=== PATIENT | male | born 1970 | race Caucasian/White ===

== ENCOUNTER 2017-10-12 14:41 | Emergency (ER) | payer OTHER ==
[~2017-10-12] VITALS: Ht 177.8 cm; Wt 102.1 kg
[2017-10-12 15:12] LABS: BASOPHILS % (AUTO) 0 % (0-10); EOSINOPHILS # (AUTO) 0.1 10^3/uL (0.0-0.3); EOSINOPHILS % (AUTO) 1 % (0-10); HEMATOCRIT 49 % (40-54); LYMPHOCYTES # (AUTO) 1.2 X 10^3 (1.0-4.0); LYMPHOCYTES % (AUTO) 8 % (12-44); MEAN CORPUSCULAR HEMOGLOBIN 31 PG (25-34); MEAN CORPUSCULAR HGB CONC 37 G/DL (32-36); MEAN CORPUSCULAR VOLUME 84 FL (80-99); MEAN PLATELET VOLUME 9.5 FL (7.4-10.4); MONOCYTES # (AUTO) 0.9 X 10^3 (0.0-1.0); MONOCYTES % (AUTO) 7 % (0-12); NEUTROPHILS # (AUTO) 11.5 X 10^3 (1.8-7.8); NEUTROPHILS % (AUTO) 84 % (42-75); PLATELET COUNT 315 10^3/uL (130-400); RED BLOOD COUNT 5.88 10^6/uL (4.35-5.85); RED CELL DISTRIBUTION WIDTH 13.7 % (10.0-14.5); WHITE BLOOD COUNT 13.7 10^3/uL (4.3-11.0)
[2017-10-12] MEDS ORDERED: NS IV 1000 ML 1,000 ML IV SCH (15:15)
[2017-10-12] MEDS ORDERED: NS 100 ML (IVPB) BAG IV ONE (15:15)
[2017-10-12] MEDS ORDERED: IOHEXOL 350 MG/ML 100 ML (OMNIPAQUE 350) VIAL IV ONE (15:15)
--- NOTE | 2017-10-12 15:23 | ED Abdominal Pain ---
General Chief Complaint: Abdominal/GI Problems Stated Complaint: N/V/CONSTIPATION/DIZZINESS Source of Information: Patient, Family Exam Limitations: No Limitations History of Present Illness Date Seen by Provider: Oct 12, 2017 Time Seen by Provider: 15:16 Initial Comments This 46-year-old white male presents with a complaint of constipation. Patient awoke this morning with tenesmus. Subsequently had 2 bowel movements. His past most recent bowel movement was 2 days ago. This is not an unusual interval for the patient. Patient has had similar episodes of paroxysmal constipation in the past year. The patient employed as self-administered fleets enema. Patient noted that he had a small amount of blood in his stool. He had an episode of vomiting. The patient has no abdominal pain at this time. He denies associated hematemesis, fever or chills, hematuria or dysuria, headache or stiff neck. Allergies and Home Medications Allergies Coded Allergies: No Known Drug Allergies (Unverified , 06/10/15) Patient Home Medication List Home Medication List Reviewed: Yes Review of Systems Constitutional: No chills, No fever EENTM: No Blurred Vision Respiratory: Denies Cough Cardiovascular: Denies Chest Pain Gastrointestinal: Abdominal Pain (patient's abdominal pain has spontaneously resolved after his stools), Constipated; Denies Vomiting Genitourinary: Denies Burning Musculoskeletal: No back pain Skin: No change in color, No rash Psychiatric/Neurological: No Symptoms Reported Endocrine: No Symptoms Reported Hematologic/Lymphatic: No Symptoms Reported Past Iiyazez-Krdxrl-Iffbfs Hx Past Med/Social Hx: Reviewed Nursing Past Med/Soc Hx Patient Social History Recent Foreign Travel: No Contact w/Someone Who Travel: No Physical Exam Vital Signs Vital Signs - First Documented 10/12/17 15:00 Temp 98.1 Pulse 89 Resp 20 B/P (MAP) 135/97 (110) Pulse Ox 95 O2 Delivery Room Air Capillary Refill : General Appearance: WD/WN, no apparent distress HEENT: normal ENT inspection Neck: non-tender, full range of motion, supple Respiratory: chest non-tender, lungs clear, normal breath sounds, no respiratory distress Cardiovascular: normal peripheral pulses, regular rate, rhythm Gastrointestinal: normal bowel sounds, non tender, soft Extremities: normal range of motion, non-tender, normal inspection, no pedal edema Back: normal inspection, no CVA tenderness, no vertebral tenderness Neurologic/Psychiatric: no motor/sensory deficits, alert, normal mood/affect, oriented x 3 Skin: normal color, warm/dry Progress/Results/Core Measures Results/Orders Lab Results Laboratory Tests Test 10/12/17 15:05 10/12/17 16:03 Range/Units White Blood Count 13.7 H 4.3-11.0 10^3/uL Red Blood Count 5.88 H 4.35-5.85 10^6/uL Hemoglobin 18.0 H 13.3-17.7 G/DL Hematocrit 49 40-54 % Mean Corpuscular Volume 84 80-99 FL Mean Corpuscular Hemoglobin 31 25-34 PG Mean Corpuscular Hemoglobin Concent 37 H 32-36 G/DL Red Cell Distribution Width 13.7 10.0-14.5 % Platelet Count 315 130-400 10^3/uL Mean Platelet Volume 9.5 7.4-10.4 FL Neutrophils (%) (Auto) 84 H 42-75 % Lymphocytes (%) (Auto) 8 L 12-44 % Monocytes (%) (Auto) 7 0-12 % Eosinophils (%) (Auto) 1 0-10 % Basophils (%) (Auto) 0 0-10 % Neutrophils # (Auto) 11.5 H 1.8-7.8 X 10^3 Lymphocytes # (Auto) 1.2 1.0-4.0 X 10^3 Monocytes # (Auto) 0.9 0.0-1.0 X 10^3 Eosinophils # (Auto) 0.1 0.0-0.3 10^3/uL Basophils # (Auto) 0.0 0.0-0.1 10^3/uL Sodium Level 140 135-145 MMOL/L Potassium Level 4.0 3.6-5.0 MMOL/L Chloride Level 108 H 98-107 MMOL/L Carbon Dioxide Level 19 L 21-32 MMOL/L Anion Gap 13 5-14 MMOL/L Blood Urea Nitrogen 20 H 7-18 MG/DL Creatinine 0.99 0.60-1.30 MG/DL Estimat Glomerular Filtration Rate > 60 BUN/Creatinine Ratio 20 Glucose Level 134 H 70-105 MG/DL Calcium Level 9.9 8.5-10.1 MG/DL Total Bilirubin 1.4 H 0.1-1.0 MG/DL Aspartate Amino Transf (AST/SGOT) 31 5-34 U/L Alanine Aminotransferase (ALT/SGPT) 68 H 0-55 U/L Alkaline Phosphatase 91 40-136 U/L Total Protein 7.9 6.4-8.2 GM/DL Albumin 4.8 H 3.2-4.5 GM/DL Lipase 17 8-78 U/L Urine Color YELLOW Urine Clarity CLEAR Urine pH 5 5-9 Urine Specific [place] 1.015 L 1.016-1.022 Urine Protein 1+ H NEGATIVE Urine Glucose (UA) NEGATIVE NEGATIVE Urine Ketones 2+ H NEGATIVE Urine Nitrite NEGATIVE NEGATIVE Urine Bilirubin NEGATIVE NEGATIVE Urine Urobilinogen NORMAL NORMAL MG/DL Urine Leukocyte Esterase NEGATIVE NEGATIVE Urine RBC (Auto) NEGATIVE NEGATIVE Urine RBC NONE /HPF Urine WBC NONE /HPF Urine Squamous Epithelial Cells NONE /HPF Urine Crystals NONE /LPF Urine Bacteria NEGATIVE /HPF Urine Casts NONE /LPF Urine Mucus NEGATIVE /LPF Urine Culture Indicated NO My Orders Orders - TUNDE VANN MD Cbc With Automated Diff (10/12/17 15:03) Comprehensive Metabolic Panel (10/12/17 15:03) Ua Culture If Indicated (10/12/17 15:03) Ct Abdomen/Pelvis W (10/12/17 15:03) Lipase (10/12/17 15:03) Ns Iv 1000 Ml (Sodium Chloride 0.9%) (10/12/17 15:15) Ondansetron Injection (Zofran Injectio (10/12/17 16:15) Fentanyl Injection (Sublimaze Injection (10/12/17 16:15) Medications Given in ED Current Medications Medications Dose Ordered Sig/Aries Route Start Time Stop Time Status Last Admin Dose Admin Fentanyl Citrate 50 mcg ONCE ONCE IVP 10/12/17 16:15 10/12/17 16:16 DC 10/12/17 16:13 50 MCG Iohexol 100 ml ONCE ONCE IV 10/12/17 15:15 10/12/17 15:28 DC 10/12/17 15:43 100 ML Ondansetron HCl 4 mg ONCE ONCE IVP 10/12/17 16:15 10/12/17 16:16 DC 10/12/17 16:12 4 MG Sodium Chloride 100 ml ONCE ONCE IV 10/12/17 15:15 10/12/17 15:28 DC 10/12/17 15:43 100 ML Vital Signs/I&O 10/12/17 15:00 Temp 98.1 Pulse 89 Resp 20 B/P (MAP) 135/97 (110) Pulse Ox 95 O2 Delivery Room Air Progress Progress Note : Time: 16:26 Progress Note Patient's white count was elevated. His lipase was normal. Remainder of the CMP was unremarkable. His urinalysis was benign. His CT from my perspective was consistent with diverticulitis although the radiologist only saw diverticulosis. Patient had continued abdominal pain and significant nausea. This was effectively treated with 50 g of fentanyl and 4 mg of Zofran. I discussed findings with patient and his . We elected to treat the patient for diverticulitis. Place patient on Cipro and Flagyl. I gave him Percocet and Zofran for pain and nausea. I asked that he follow-up closely with his primary care physician on Saturday. Patient agreed to come back for any further problems or questions. Departure Impression Primary Impression: Diverticulitis of intestine Qualified Codes: K57.33 - Diverticulitis of large intestine without perforation or abscess with bleeding Disposition: HOME, SELF-CARE Condition: Improved Departure-Patient Inst. Decision time for Depature: 16:28 Referrals: ZEINAB MARTÍNEZ MD (PCP/Family) Primary Care Physician Add. Discharge Instructions: Cipro and Flagyl as prescribed. Vicodin for pain. Zofran for nausea. Follow- up with your doctor Saturday for recheck. Rest at home this . He should' ve any problems. All discharge instructions reviewed with patient and/or family. Voiced understanding. TUNDE VANN MD Oct 12, 2017 15:23
[2017-10-12 15:32] LABS: ALANINE AMINOTRANSFERASE 68 U/L (0-55); ALBUMIN 4.8 GM/DL (3.2-4.5); ALKALINE PHOSPHATASE 91 U/L (40-136); BILIRUBIN,TOTAL 1.4 MG/DL (0.1-1.0); BUN/CREATININE RATIO 20; CALCIUM 9.9 MG/DL (8.5-10.1); CARBON DIOXIDE 19 MMOL/L (21-32); CHLORIDE 108 MMOL/L (98-107); CREATININE SERUM 0.99 MG/DL (0.60-1.30); GFR ESTIMATED > 60; GLUCOSE 134 MG/DL (70-105); LIPASE 17 U/L (8-78); SODIUM 140 MMOL/L (135-145); TOTAL PROTEIN 7.9 GM/DL (6.4-8.2)
--- NOTE | 2017-10-12 16:03 | Diagnostic Imaging Report ---
PROCEDURE: CT abdomen and pelvis with contrast. TECHNIQUE: Multiple contiguous axial images were obtained through the abdomen and pelvis after administration of intravenous contrast. INDICATION: Abdominal pain with severe constipation, cramping, nausea and vomiting. COMPARISON: None. DISCUSSION: The lung bases are unremarkable. Normal heart size. No pleural or pericardial fluid. Fatty infiltration of the liver is noted. The gallbladder, stomach, pancreas, spleen, and adrenal glands are unremarkable. Simple appearing cyst is noted within the superior left kidney measuring 6 cm. No hydronephrosis or renal stone. Urinary bladder and prostate are unremarkable. Mild diverticulosis with no secondary evidence for diverticulitis. No constipation. No obstruction, pneumatosis, pneumoperitoneum. The appendix is normal. No ascites or pathologically enlarged lymph nodes identified. Aorta is normal in caliber. No osseous abnormality. IMPRESSION: 1. Fatty liver. 2. Diverticulosis. Dictated by: Dictated on workstation # [id number]
[2017-10-12 16:12] LABS: BILIRUBIN,URINE NEGATIVE (NEGATIVE); CLARITY,URINE CLEAR; COLOR,URINE YELLOW; GLUCOSE, URINE (UA) NEGATIVE (NEGATIVE); KETONES,URINE 2+ (NEGATIVE); LEUKOCYTE ESTERASE ,URINE NEGATIVE (NEGATIVE); NITRITE,URINE NEGATIVE (NEGATIVE); PH,URINE 5 (5-9); PROTEIN,URINE 1+ (NEGATIVE); UROBILINOGEN,URINE NORMAL (NORMAL)
[2017-10-12] MEDS ORDERED: fentaNYL INJECTION 100 MCG/2 ML AMP IVP ONE (16:15)
[2017-10-12] MEDS ORDERED: ONDANSETRON 4 MG/2 ML (SDV) Z0FRAN IVP ONE (16:15)
[2017-10-12 16:19] LABS: BACTERIA,URINE NEGATIVE /HPF
[2017-10-12] MEDS ORDERED: CELE-63 (16:58)
[2017-10-12 16:59] VITALS: BP 144/82
== END 2017-10-12 16:58 | disposition home or self-care (01) ==
LOC: EDUNIT# 14:41 → ER 14:43
DX: K57.32 Diverticulitis of large intestine without perforation or abscess without bleeding (principal)
CPT/HCPCS: 36415; 74177; 80053; 81000; 83690; 85025; 96361; 96374; 96375